=== PATIENT | female | born 1965 | race African-American/Black ===

== ENCOUNTER → 2016-07-01 | Outpatient (CLI) | payer BC ==
--- NOTE | 2016-07-02 09:50 | MM ---
Reason for exam: screening (asymptomatic). Last mammogram was performed 5 years and 4 months ago. History: Family history of premenopausal breast cancer in aunt. Physical Findings: A clinical breast exam by your physician is recommended on an annual basis and results should be correlated with mammographic findings. MG Screening Mammo w CAD Bilateral CC and MLO view(s) were taken. Prior study comparison: March 04, 2011, bilateral digital screening mammo w/CAD. May 12, 2006, bilateral screening mammogram w/CAD. The breast tissue is heterogeneously dense. This may lower the sensitivity of mammography. No significant changes when compared with prior studies. ASSESSMENT: Benign, BI-RAD 2 RECOMMENDATION: Routine screening mammogram of both breasts in 1 year.
== END | disposition home or self-care (01) ==
LOC: RADMAMWWP 16:32
PROVIDERS: ATTEND Family Medicine
DX: Z12.31 Encounter for screening mammogram for malignant neoplasm of breast (principal)

== ENCOUNTER 2021-03-04 00:23 | Emergency (ER) | payer BC, OTHER ==
[2021-03-04 00:32] VITALS: RESP 18
[2021-03-04] MEDS ORDERED: ACETAMINOPHEN TAB 325 MG TAB PO STA (01:07)
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
--- NOTE | 2021-03-04 02:19 | XR ---
EXAMINATION TYPE: XR humerus LT DATE OF EXAM: 03/04/2021 COMPARISON: NONE HISTORY: Pain TECHNIQUE: 3 views FINDINGS: Shoulder joint and elbow joint appear intact. I see no fracture nor dislocation. There is n o sign of elbow joint effusion. IMPRESSION: Negative left humerus exam.
[2021-03-04 03:11] VITALS: BP 139/83; PULSE 68; TEMP 98.3
== END 2021-03-04 02:50 | disposition home or self-care (01) ==
LOC: EC 00:23
DX: S70.02XA Contusion of left hip, initial encounter (principal); S40.022A Contusion of left upper arm, initial encounter; K21.9 Gastro-esophageal reflux disease without esophagitis; F17.200 Nicotine dependence, unspecified, uncomplicated; Z88.0 Allergy status to penicillin; Z98.51 Tubal ligation status; V43.52XA Car driver injured in collision with other type car in traffic accident, initial encounter; Y92.410 Unspecified street and highway as the place of occurrence of the external cause
CPT/HCPCS: 73502; 99284

== ENCOUNTER → 2021-04-22 | Outpatient (CLI) | payer BC ==
--- NOTE | 2021-04-22 12:28 | XR ---
Limited cervical spine HISTORY: Neck pain 5 views of cervical spine Cervical vertebral bodies show preserved height, alignment, and bone mineralization. Disc spaces and prevertebral soft tissues are normal. There is a thoracic scoliosis suspected. Lung apices are remark able for questionable apical nodular density in the left superimpose of the anterior first rib latera lly. Odontoid views are limited. IMPRESSION: No significant abnormality within the cervical spine. Cannot exclude left upper lobe lung nodule, consider chest x-ray with associated apical lordotic view versus chest CT for better evaluat ion. There is likely an underlying scoliosis.
== END | disposition home or self-care (01) ==
LOC: RADXRMAIN 09:19
PROVIDERS: ATTEND Family Medicine
DX: M54.2 Cervicalgia (principal)
CPT/HCPCS: 72040

== ENCOUNTER → 2021-05-28 | Outpatient (CLI) | payer BC, OTHER ==
--- NOTE | 2021-05-28 08:20 | MR ---
MRI CERVICAL SPINE: CLINICAL HISTORY: Cervicalgia. TECHNIQUE: Multiplanar, multisequence imaging of the cervical spine is performed without IV contrast. COMPARISON: Cervical spine x-ray April 22, 2021. FINDINGS: Sagittal images of the cervical spine show the craniocervical junction to appear within nor mal limits. The cervical and upper thoracic spinal cord is normal in course, caliber, and signal. V ertebral alignment is anatomic. The vertebral body and intravertebral disk heights are normal. The bone marrow signal intensity is within normal limits. Axial images show there is no significant focal disk disease, spinal canal stenosis, neural foraminal narrowing, or spinal cord compromise at any cervical level. Note is made of a oval 8 x 10 x 6 mm T1 hypointense and T2 hyperintense structure in the proximal esophagus at C7-T1 level sagittal image 8 a nd axial image 4. Follow-up for this is advised. IMPRESSION: No suspicious disc herniation or degenerative change. Attention to proximal esophagus, po ssible mass or polyp, further investigation with direct visualization and/or barium esophagram advise justin
== END | disposition home or self-care (01) ==
LOC: RADMRIMAIN 07:38
PROVIDERS: ATTEND Family Medicine
DX: M54.2 Cervicalgia (principal)
CPT/HCPCS: 72141

== ENCOUNTER 2021-06-12 07:59 | Day surgery (SDC) | payer BC ==
[2021-06-10 10:32] VITALS: BMI 22.6
[2021-06-12] MEDS ORDERED: LACTATED RINGERS 1,000 ML IV SCH (08:21)
[2021-06-12 08:26] VITALS: TEMP 97.3
[2021-06-12] MEDS ORDERED: LACTATED RINGERS 1,000 ML IV ONE (08:26)
[2021-06-12] MEDS ORDERED: PROPOFOL 10 MG/ML 20 ML VIAL IV ONE (09:30)
[2021-06-12] MEDS ORDERED: LIDOCAINE 1% INJ 10MG/ML (20 ML MDV) ONE (09:30)
--- NOTE | 2021-06-12 09:40 | P.PCN ---
Date of Procedure: 06/12/21 Procedure(s) Performed: BRIEF HISTORY: Patient is a 55-year-old, pleasant, -[place] female scheduled for an upper endoscopy as a part of evaluation of intermittent dysphagia to solids of GERD. She recently had an MRI of the cervical spine per dictated and was noted to have a lesion in the proximal esophagus and hence scheduled for an upper endoscopy to evaluate further. PROCEDURE PERFORMED: Esophagogastroduodenoscopy with biopsy. PREOPERATIVE DIAGNOSIS: GERD/dysphagia/abnormal MRI of the cervical spine showed lesions in the proximal esophagus. IV sedation per anesthesia. PROCEDURE: After informed consent was obtained, the patient was brought into the endoscopy unit. IV sedation was administered by Anesthesia under continuous monitoring. Initially the Olympus GIF-140 video endoscope was inserted into the mouth. Esophagus intubated without any difficulty. It was gradually advanced into the stomach and duodenum and carefully examined. The bulb and the second part of the duodenum appeared normal. The scope at this time was withdrawn to the stomach, adequately insufflated with air, and upon careful examination, mucosa of the antrum, had patchy areas of erythema noted in the prepyloric area which was biopsied. The body, cardia and the fundus appeared normal. The scope was then withdrawn into the esophagus. The GE junction was located at 40 cm from the incisors. There were no erosions or ulcerations seen . The esophagus appeared slightly dilated with small amount of retained liquid noted. The esophagus was carefully examined and there were no and the patient tolerated the procedure well. IMPRESSION: 1. Dilated esophagus with small amount of retained liquids but no evidence of esophageal stricture or esophageal lesions identified. 2. Mild antral gastritis. RECOMMENDATIONS: The findings of this examination were discussed with the patient as well as a family. She was advised to follow with the biopsy results. She will continue with her current medications and follow up in office as needed
[2021-06-12 09:55] VITALS: RESP 16
[2021-06-12 10:17] VITALS: BP 106/70; PULSE 71
== END 2021-06-12 10:30 | disposition home or self-care (01) ==
LOC: ORWHC2ENDO 07:59
PROVIDERS: ATTEND Internal Medicine Gastroenterology
DX: K22.89 Other specified disease of esophagus (principal); K21.9 Gastro-esophageal reflux disease without esophagitis; K29.50 Unspecified chronic gastritis without bleeding; F17.210 Nicotine dependence, cigarettes, uncomplicated; K31.9 Disease of stomach and duodenum, unspecified; Z79.899 Other long term (current) drug therapy; Z88.0 Allergy status to penicillin; Z88.2 Allergy status to sulfonamides
CPT/HCPCS: 88305; 43239; J2001; J2704

== ENCOUNTER → 2021-06-22 | Outpatient (CLI) | payer BC, OTHER ==
[2021-06-22 08:36] VITALS: BP 138/87; PULSE 84; RESP 18; TEMP 98.3
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
== END ==
LOC: PNWHC3 08:04
PROVIDERS: ATTEND Specialist
DX: M47.814 Spondylosis without myelopathy or radiculopathy, thoracic region (principal); M79.18 Myalgia, other site; Z87.891 Personal history of nicotine dependence; Z88.0 Allergy status to penicillin; Z88.8 Allergy status to other drugs, medicaments and biological substances
CPT/HCPCS: 99211

== ENCOUNTER → 2021-06-23 | Outpatient (CLI) | payer BC ==
--- NOTE | 2021-06-23 13:46 | BD ---
EXAMINATION TYPE: Axial Bone Density DATE OF EXAM: 06/23/2021 COMPARISON: 03.04.2011 CLINICAL HISTORY: 55 YR OLD FEMALE....ICD-10 CODE: N95.1 POST MENOPAUSAL Height: 65.5 Weight: 138 FRAX RISK QUESTIONS: Current Tobacco Use: YES RISK FACTORS HISTORY OF: Postmenopausal woman: YES, AT AGE 52 YRS OLD Hyperparathyroidism: NO Adrenal Insufficiency: NO MEDICATIONS: Additional Medications: FLEXERIL, WELLBUTRIN, MOTRIN, Additional History: SMOKES, EXAM MEASUREMENTS: Bone mineral densitometry was performed using the [employer] System. Bone mineral density as measured about the Lumbar spine is: ----- L1-L4(G/cm2): 1.010 T Score Values are as follows: ----- L1 -1.7 ----- L2: -0.7 ----- L3: -1.2 ----- L4: -2.0 ----- L1-L4: -1.4 Bone mineral density has: Decreased -17.8% since study of: 03.04.2011 Bone mineral density about the R hip (g/cm2): 0.870 Bone mineral density about the L hip (g/cm2): 0.932 T Score values are as follows: -----R Neck: -1.1 -----L Neck: -0.9 -----R Total: -1.1 -----L Total: -0.6 Bone mineral density has: Decreased -12.4% since study of: 03.04.2011 FRAX%s: THERE IS A 2.7% CHANCE FOR A MAJOR OSTEOPOROTIC FX AND A 0.3% FOR HIP.....PROBABILITY FOR FX IN 10 YRS TIME IMPRESSION: Osteopenia lumbar spine and right hip. NOTE: T-SCORE=SD OF THE YOUNG ADULT MEAN.
--- NOTE | 2021-06-25 14:29 | MM ---
Reason for exam: screening (asymptomatic). Last mammogram was performed 5 years ago. History: Family history of premenopausal breast cancer in aunt. Physical Findings: A clinical breast exam by your physician is recommended on an annual basis and results should be correlated with mammographic findings. MG Screening Mammo w CAD Bilateral CC and MLO view(s) were taken. Prior study comparison: July 01, 2016, bilateral MG screening mammo w CAD. March 04, 2011, bilateral digital screening mammo w/CAD. The breast tissue is heterogeneously dense. This may lower the sensitivity of mammography. There is no discrete abnormality. No significant changes when compared with prior studies. ASSESSMENT: Negative, BI-RAD 1 RECOMMENDATION: Routine screening mammogram of both breasts in 1 year.
== END | disposition home or self-care (01) ==
LOC: RADMAMWWP 11:47
PROVIDERS: ATTEND Family Medicine
DX: Z12.31 Encounter for screening mammogram for malignant neoplasm of breast (principal); M85.89 Other specified disorders of bone density and structure, multiple sites; Z78.0 Asymptomatic menopausal state; Z80.3 Family history of malignant neoplasm of breast
CPT/HCPCS: 77067; 77080

== ENCOUNTER → 2021-07-08 | Outpatient (CLI) | payer OTHER ==
--- NOTE | 2021-07-08 10:13 | MR ---
EXAMINATION TYPE: MR thoracic spine wo con DATE OF EXAM: 07/08/2021 COMPARISON: NONE HISTORY: 55-year-old female M47.814, thoracic spondylosis, Mid-back pain. TECHNIQUE: Multiplanar, multisequence images of the thoracic spine were obtained without IV contrast. FINDINGS: A minimal levoconvex curvature centered along the upper risks explained. No suspicious bone marrow placement. Vertebral body heights are preserved and alignment is maintained. Variable mild intervertebral disc desiccation upper and mid thoracic spine. No focal disc herniation or spinal canal stenosis is seen. Mild facet arthropathy lower thoracic spine towards the right. No significant neuroforaminal stenosis identified. Normal course and caliber, and signal intensity of the thoracic spinal cord. The thoracic esophagus appears very patulous. IMPRESSION: 1. No vertebral compression collapse or malalignment. 2. Mild degenerative disc desiccation upper and mid thoracic spine. Mild facet arthropathy towards th e right in the lower thoracic spine. 3. No focal disc herniation or significant spinal canal stenosis. No significant neuroforaminal steno sis seen. 4. Very patulous thoracic esophagus. Query prior surgery or achalasia. Recommend GI referral.
== END | disposition home or self-care (01) ==
LOC: RADMRIMAIN 07:43
PROVIDERS: ATTEND Specialist
DX: M47.814 Spondylosis without myelopathy or radiculopathy, thoracic region (principal); M51.34 Other intervertebral disc degeneration, thoracic region
CPT/HCPCS: 72146

== ENCOUNTER 2021-07-23 06:23 | Day surgery (SDC) | payer BC, OTHER ==
[2021-07-21 10:35] VITALS: BMI 21.9
[~2021-07-23 06:23] MED LIST: LACTATED RINGERS 1,000 ML IV SCH
[2021-07-23 06:57] VITALS: RESP 16; TEMP 97.5
[2021-07-23] MEDS ORDERED: methylPREDNISolone ACETATE 40 MG/ML 1 ML VIAL ONE (07:19)
[2021-07-23] MEDS ORDERED: ROPIVACAINE 5MG/ML 20ML VIAL ONE (07:19)
[2021-07-23] MEDS ORDERED: MIDAZOLAM 2 MG/2 ML VIAL ONE (07:19)
[2021-07-23] MEDS ORDERED: fentaNYL (PF) 50 MCG/ML 2 ML AMP ONE (07:19)
--- NOTE | 2021-07-23 07:35 | P.PCN ---
Date of Procedure: 07/23/21 Procedure(s) Performed: Procedure= trigger point injection Lower cervical and upper thoracic area total of 9 trigger point injected, 5 on the right side cervical and thoracic paravertebral muscles and 4 on the left side lower cervical and upper thoracic paravertebral muscles Preoperative diagnosis= 1- myofascial pain syndrome cervical and thoracic area 2-Thoracic degenerative disc disease 3-Thoracic spondylosis with facet arthropathy Postoperative diagnosis=Same as preop Diagnosis . Complication = none Condition= stable Anesthesia= moderate sedation with Versed 2 mg and fentanyl 50 g . Indication for the procedure= patient complaining of mid back pain , examination was positive for multiple trigger point identified in the thoracic area. Description of the procedure= procedure risk and benefits discussed with the patient, including but not limited, risk of infection and bleeding, and ALLERGIC reaction to the medication and not complete pain relief and patient agreed with the preceding patient taken to the operating room, placed in prone position or standard monitors applied to the patient then after back prepped with chlorhexidine 3 times , total of 5 trigger point identified in the right side lower cervical and upper thoracic para spinal muscles, and 5 on the left side lower cervical and upper thoracic paraspinal muscles ,each one of them ,injected with 2 mL of the mixture of ropivacaine 0.5% 18 ML and 40 mg of Depo-Medrol mixed together and 2 ML of the mixture injected at each trigger point after negative aspiration, injection done using 25-gauge needle, and there was no paresthesia during the injection, patient will follow up in the pain clinic in a few weeks, and if she continued to have pain, then will consider targeting the medial branch upper thoracic area, if she has no benefit from the injection done today
[2021-07-23] MEDS ORDERED: IV FLUID CONTINUATION 1,000 ML IV ONE (07:39)
[2021-07-23 08:08] VITALS: BP 132/89; PULSE 75
== END 2021-07-23 08:27 | disposition home or self-care (01) ==
LOC: ORPAIN 06:23
PROVIDERS: ATTEND Specialist
DX: M79.18 Myalgia, other site (principal)
CPT/HCPCS: 20553; J2250; J1030; J3010; J2795

== ENCOUNTER 2021-08-20 11:50 | Day surgery (SDC) | payer OTHER ==
[2021-08-20] MEDS ORDERED: LIDOCAINE 1% (10MG/ML) FOR IV START INTRADERMA PRN (12:06)
[2021-08-20] MEDS ORDERED: LACTATED RINGERS 1,000 ML IV SCH (12:06)
[2021-08-20 12:24] VITALS: TEMP 97.1
[2021-08-20] MEDS ORDERED: methylPREDNISolone ACETATE 40 MG/ML 1 ML VIAL ONE (13:07)
[2021-08-20] MEDS ORDERED: fentaNYL (PF) 50 MCG/ML 2 ML AMP ONE (13:07)
[2021-08-20] MEDS ORDERED: ROPIVACAINE 5MG/ML 20ML VIAL ONE (13:07)
[2021-08-20] MEDS ORDERED: MIDAZOLAM 2 MG/2 ML VIAL ONE (13:07)
--- NOTE | 2021-08-20 13:26 | P.PCN ---
Date of Procedure: 08/20/21 Procedure(s) Performed: Procedure= trigger point injection Lower cervical and upper thoracic area total of 7 trigger point injected, 3 on the right side cervical and thoracic paravertebral muscles and 4 on the left side lower cervical and upper thoracic paravertebral muscles Preoperative diagnosis= 1- myofascial pain syndrome cervical and thoracic area 2-Thoracic degenerative disc disease 3-Thoracic spondylosis with facet arthropathy Postoperative diagnosis=Same as preop Diagnosis . Complication = none Condition= stable Anesthesia= moderate sedation with Versed 2 mg and fentanyl 50 g . Indication for the procedure= patient complaining of mid back pain , examination was positive for multiple trigger point identified in the thoracic area. Description of the procedure= procedure risk and benefits discussed with the patient, including but not limited, risk of infection and bleeding, and ALLERGIC reaction to the medication and not complete pain relief and patient agreed with the preceding patient taken to the operating room, placed in prone position or standard monitors applied to the patient then after back prepped with chlorhexidine 3 times , total of 3 trigger point identified in the right side lower cervical and upper thoracic para spinal muscles, and 4 on the left side lower cervical and upper thoracic paraspinal muscles ,each one of them ,injected with 2 mL of the mixture of ropivacaine 0.5% 14 ML and 40 mg of Depo-Medrol mixed together and 2 ML of the mixture injected at each trigger point after negative aspiration, injection done using 25-gauge needle, and there was no paresthesia during the injection, patient will follow up in the pain clinic in a few weeks, and if she continued to have pain, then will consider targeting the medial branch upper thoracic area, if she has no benefit from the injection done today
[2021-08-20] MEDS ORDERED: IV FLUID CONTINUATION 1,000 ML IV ONE (13:30)
[2021-08-20 13:36] VITALS: PULSE 76
[2021-08-20 14:09] VITALS: BP 122/85; RESP 20
== END 2021-08-20 14:34 | disposition home or self-care (01) ==
LOC: ORPAIN 11:50
PROVIDERS: ATTEND Specialist
DX: M79.18 Myalgia, other site (principal); M51.34 Other intervertebral disc degeneration, thoracic region; M47.814 Spondylosis without myelopathy or radiculopathy, thoracic region
CPT/HCPCS: 20553; J2250; J1030; J3010; J2795

== ENCOUNTER → 2021-09-07 | Outpatient (CLI) | payer OTHER ==
[2021-09-07 08:56] VITALS: BP 141/87; PULSE 86; RESP 18; TEMP 98.2
--- NOTE | 2021-09-07 08:58 | P.PN ---
Subjective Progress Note Date: 09/07/21 Principal diagnosis: A 55 yr old female with a history of severe and chronic neck pain secondary to cervical degenerative disc diseases and spondylosis with facet arthropathy presents today for evaluation s/p TPI of the R C6-T1 and L C6-T2. Patient states she experienced 90% pain relief status post procedure. Pain level is currently at 0 out of 10 in intensity but escalates as high as 1 out of 10 in intensity, sharp, radiating to the upper aspect of the shoulders bilaterally with forward flexion or extension of the cervical spine. Pain is alleviated with medications, injections, heat, repositioning, physical therapy which she completed 2 weeks ago, massage, repositioning and rest. Interventional pain procedures completed include TPI of R C6-T1 & L C6-T2. Patient denies any side effects of the medication(s), denies excessive drowsiness or sleepiness, denies suicidal ideation and reports that the current pain medication is helping to control the pain and improve activities of daily living. Patient denies any motor or sensory deficits. Patient denies any fever or night sweats, denies any change in the bowel movements or urination. Physical Examination: -Constitutional: Cooperative. Not in acute distress . -HEENT: Neck is supple. No lymphadenopathy. No thyromegaly. Normal thyroid size. Eyes: No ptosis , no icterus, no photophobia. ENT: No auditory deficits. Normal oropharynx. No Thrush. - Respiratory: Chest clear to auscultations bilaterally. No wheezing. No rhonchi. - Cardiovascular: Regular rate and rhythm. S1 / S2 , no S3 , no S4. - Gastrointestinal: Abdomen soft no tenderness. Bowel sounds positive in all four quadrants. No organomegaly. - Genitourinary: Deferred. - Neurologic: Cranial nerve II to XII intact. No focal neurological deficits. - Psychatric: Alert & oriented x 3. Matching mood & appropriate affect. Judgment and insight intact. - Lymphatic: No Lymphadenopathy. - Musculoskeletal: Cervical spine: Muscle bulk/ tone/ strength in the bilateral upper extremities normal. Facet loading test cervical area positive. Vertebral body tenderness to palpation over C6-C7 Paraspinal muscle tenderness to deep palpation over bilateral C6-T1 Lumbar spine: Motor bulk/ tone/ strength lower extremities , thigh and legs : 5/5 Deep tendon reflexes : Normal Knee Jerk. Normal Ankle Jerk . Vertebral body tenderness to palpation over Lumbar Facet Loading Test positive Straight Leg Raise: positive at 30 degrees right side/ left side Gaenslen's Test positive Sacral spine : Severe tenderness over the Sacroiliac joint: right side / left side Range of motion: Flexion of the lumbar spine <60 degrees Range of motion: Extension of the lumbar spine <20 degrees Gaenslen's Test positive Alexandr test: positive right side / left side Assessment and plan: Chronic neck pain secondary to cervical degenerative disc disease , spondylosis with facet arthropathy without myelopathy Patient may return to our office on an as needed basis. All patient questions answered MAPS reviewed and it was appropriate. I have spent 31 minutes on patient care today. Dr Barcenas was available by phone for the evaluation of this patient. The time was used to review the medical records including relevant urine studies and Prescription history (MAPs), review of the available imaging, evaluation and examination of the patient, coordination of care with the medical staff and if applicable referring physicians, as well as creation of the medical record PQRS Measure Charge Sheet Mode of Arrival: Ambulatory PQRS Narrative: Smoking Status Current every day smoker Blood Pressure 141/87 Scale Used Numeric (1 - 10) Hx Alcohol Use (MH) No Home Medications: Ambulatory Orders Cannabidiol (Cbd) [Epidiolex] 1 dose TOPICAL DAILY PRN 06/17/21 Cyclobenzaprine [Flexeril] 10 mg PO HS PRN 30 Days #30 tab 08/17/21 Ibuprofen [Motrin] 800 mg PO Q8HR PRN 30 Days #90 tab 08/17/21
== END ==
LOC: PNWHC3 08:27
PROVIDERS: ATTEND Physician Assistant Medical
DX: M47.812 Spondylosis without myelopathy or radiculopathy, cervical region (principal); M50.30 Other cervical disc degeneration, unspecified cervical region; G89.29 Other chronic pain; F17.200 Nicotine dependence, unspecified, uncomplicated; Z88.0 Allergy status to penicillin; Z88.8 Allergy status to other drugs, medicaments and biological substances
CPT/HCPCS: 99211

== ENCOUNTER 2022-09-13 22:52 | Emergency (ER) | payer BC ==
[2022-09-13 23:05] VITALS: BP 149/95; PULSE 80; RESP 18; TEMP 98.3
--- NOTE | 2022-09-13 23:38 | XR ---
EXAMINATION TYPE: XR knee complete LT DATE OF EXAM: 09/13/2022 COMPARISON: NONE HISTORY: Knee pain TECHNIQUE: 3 view FINDINGS: There is no evidence of fracture nor dislocation. Joint spaces are normal. No sign of any j oint effusion. IMPRESSION: Negative left knee exam.
--- NOTE | 2022-09-13 23:50 | ED ---
Lower Extremity Injury HPI - General Chief Complaint: Extremity Injury, Lower Stated Complaint: L knee pain Time Seen by Provider: 09/13/22 23:06 Source: patient, RN notes reviewed Mode of arrival: ambulatory Limitations: no limitations - History of Present Illness Initial Comments: 56-year-old female presents emergency Department with chief complaint of left knee pain. Patient states she was getting off the toilet when her foot slipped on the rug causing her to twist. Patient states she twisted her left knee states she had increase in swelling, difficulty and bleeding states she can barely put any weight on her left leg. Patient's had right knee problems in the past no prior left knee surgery. Patient states it feels very loose, feels like he wants to give out. - Related Data Home Medications Medication Instructions Recorded Confirmed Cannabidiol (Cbd) [Epidiolex] 1 dose TOPICAL DAILY PRN 06/17/21 08/20/21 Previous Rx's Medication Instructions Recorded Cyclobenzaprine [Flexeril] 10 mg PO HS PRN 30 Days #30 tab 08/17/21 Ibuprofen [Motrin] 800 mg PO Q8HR PRN 30 Days #90 tab 08/17/21 Allergies Allergy/AdvReac Type Severity Reaction Status Date / Time Penicillins Allergy Rash/Hives Verified 08/20/21 12:07 prochlorperazine edisylate Allergy CLOSED Verified 08/20/21 12:07 [From Compazine] AIRWAY prochlorperazine maleate Allergy CLOSED Verified 08/20/21 12:07 [From Compazine] AIRWAY Review of Systems ROS Statement: Those systems with pertinent positive or pertinent negative responses have been documented in the HPI. ROS Other: All systems not noted in ROS Statement are negative. Past Medical History Past Medical History: GERD/Reflux History of Any Multi-Drug Resistant Organisms: None Reported Past Surgical History: Orthopedic Surgery, Tubal Ligation Additional Past Surgical History / Comment(s): ARTHROSCOPY KNEE Past Anesthesia/Blood Transfusion Reactions: No Reported Reaction Past Psychological History: No Psychological Hx Reported Smoking Status: Current every day smoker General Exam Limitations: no limitations General appearance: alert, in no apparent distress Head exam: Present: atraumatic, normocephalic, normal inspection Respiratory exam: Present: normal lung sounds bilaterally. Absent: respiratory distress, wheezes, rales, rhonchi, stridor Cardiovascular Exam: Present: regular rate, normal rhythm, normal heart sounds. Absent: systolic murmur, diastolic murmur, rubs, gallop, clicks Extremities exam: Present: other (Left knee there is moderate fluid noted, pain with range of motion neurovascular intact joint above and below left knee within normal limits there is some laxity noted of the left knee) Course Vital Signs 09/13/22 23:01 Temperature 98.3 F Pulse Rate 80 Respiratory 18 Rate Blood Pressure 149/95 O2 Sat by Pulse 98 Oximetry Medical Decision Making - Medical Decision Making Was pt. sent in by a medical professional or institution (, ROBERT, BEATER MACHINE OPERATOR, urgent care, hospital, or alf...) When possible be specific @ -No Did you speak to anyone other than the patient for history (EMS, parent, family, police, friend...)? What history was obtained from this source @ -No Did you review nursing and triage notes (agree or disagree)? Why? @ -I reviewed and agree with nursing and triage notes Were old charts reviewed (outside hosp., previous admission, EMS record, old EKG, old radiological studies, urgent care reports/EKG's, alf records)? Report findings @ -No old charts were reviewed Differential Diagnosis (chest pain, altered mental status, abdominal pain women, abdominal pain men, vaginal bleeding, weakness, fever, dyspnea, syncope, headache, dizziness, GI bleed, back pain, seizure, CVA, palpatations, mental health, musculoskeletal)? @ -Left knee sprain, left knee strain, left knee dislocation, femur fracture, this list is not all inclusive EKG interpreted by me (3pts min.). @ -None X-rays interpreted by me (1pt min.). @ -X-ray is unremarkable a left knee CT interpreted by me (1pt min.). @ -None done U/S interpreted by me (1pt. min.). @ -None done What testing was considered but not performed or refused? (CT, X-rays, U/S, labs)? Why? @ -Consider MRI though this will be completed outpatient as unable to complete in the emergency Department What meds were considered but not given or refused? Why? @ -None Did you discuss the management of the patient with other professionals (professionals i.e. , ROBERT, BEATER MACHINE OPERATOR, lab, RT, psych nurse, health and social care teacher, counseling director, teacher, policy officer, disability case manager)? Give summary @ -No Was smoking cessation discussed for >3mins.? @ -No Was critical care preformed (if so, how long)? @ -No Were there social determinants of health that impacted care today? How? (Homelessness, low income, unemployed, alcoholism, drug addiction, transportation, low edu. Level, literacy, decrease access to med. care, group home, rehab)? @ -No Was there de-escalation of care discussed even if they declined (Discuss DNR or withdrawal of care, Hospice)? DNR status @ -No What co-morbidities impacted this encounter? (DM, HTN, Smoking, COPD, CAD, Cancer, CVA, ARF, Chemo, Hep., AIDS, mental health diagnosis, sleep apnea, morbid obesity)? @ -None Was patient admitted / discharged? Hospital course, mention meds given and route, prescriptions, significant lab abnormalities, going to OR and other pertinent info. @ -Discharge patient has a left knee sprain concerning for ligamentous injury, tear will follow-up with orthopedics for MRI patient was placed in knee immobilizer. Undiagnosed new problem with uncertain prognosis? @ -No Drug Therapy requiring intensive monitoring for toxicity (Heparin, Nitro, Insulin, Cardizem)? @ -No Were any procedures done? @ -No Diagnosis/symptom? @ -Left knee strain Acute, or Chronic, or Acute on Chronic? @ -Acute Uncomplicated (without systemic symptoms) or Complicated (systemic symptoms)? @ -Uncomplicated Side effects of treatment? @ -No Exacerbation, Progression, or Severe Exacerbation? @ -No Poses a threat to life or bodily function? How? (Chest pain, [place], [place], pneumonia, PE, COPD, DKA, ARF, appy, cholecystitis, CVA, Diverticulitis, Homicidal, Suicidal, threat to staff... and all critical care pts) @ -No Disposition Clinical Impression: Derangement of left knee Disposition: HOME SELF-CARE Condition: Stable Instructions (If sedation given, give patient instructions): Knee Pain (ED) Additional Instructions: Please return to the Emergency Department if symptoms worsen or any other concerns. Is patient prescribed a controlled substance at d/c from ED?: No Referrals: Kem Schwartz MD [Primary Care Provider] - 1-2 days Gregorio Nation MD [STAFF PHYSICIAN] - 1-2 days Time of Disposition: 23:50
== END 2022-09-14 00:06 | disposition home or self-care (01) ==
LOC: EC 22:52
DX: M23.92 Unspecified internal derangement of left knee (principal); F17.200 Nicotine dependence, unspecified, uncomplicated; Z88.0 Allergy status to penicillin; Z88.8 Allergy status to other drugs, medicaments and biological substances; X50.1XXA Overexertion from prolonged static or awkward postures, initial encounter
CPT/HCPCS: 99283

== ENCOUNTER → 2022-10-21 | Outpatient (CLI) | payer BC ==
--- NOTE | 2022-10-22 07:33 | MM ---
Reason for Exam: Screening (asymptomatic). Last mammogram was performed 1 year(s) and 4 month(s) ago. Patient History: Menarche at age 10. First Full-Term at age 23. Postmenopausal. Maternal aunt had breast cancer. Risk Values: America 5 year model risk: 1.5%. NCI Lifetime model risk: 8.5%. Prior Study Comparison: 03/04/2011 Bilateral Screening Mammogram, [facility]. 07/01/2016 Bilateral Screening Mammogram, [facility]. 06/23/2021 Bilateral Screening Mammogram, [facility]. Tissue Density: There are scattered fibroglandular densities. Findings: Analyzed By CAD. There is no suspicious group of microcalcifications or new suspicious mass in either breast. Overall Assessment: Negative, BI-RAD 1 Management: Screening Mammogram of both breasts in 1 year. . Patient should continue monthly self-breast exams. A clinical breast exam by your physician is recommended on an annual basis. This exam should not preclude additional follow-up of suspicious palpable abnormalities. Note on America scores and lifetime risk: 1. A America score greater than 3% is considered moderate risk. If this is the case, consider specialist referral to assess eligibility for a risk reducing agent. 2. If overall lifetime risk for the development of breast cancer is 20% or higher, the patient may qualify for future screening with alternating mammogram and breast MRI. Electronically signed and approved by: Fahad Powell M.D.
== END | disposition home or self-care (01) ==
LOC: RADMAMWWP 11:07
PROVIDERS: ATTEND Family Medicine
DX: Z12.31 Encounter for screening mammogram for malignant neoplasm of breast (principal); Z78.0 Asymptomatic menopausal state; Z80.3 Family history of malignant neoplasm of breast
CPT/HCPCS: 77067

== ENCOUNTER → 2023-10-31 | Outpatient (CLI) | payer BC ==
--- NOTE | 2023-10-31 09:12 | XR ---
EXAM TYPE: LUMBAR SPINE X RAY SERIES COMPARISON: NONE HISTORY: None TECHNIQUE: 4 views are submitted. FINDINGS: Alignment is anatomic. The pedicles are intact. The transverse processes are intact. There is high grade 1 anterolisthesis L5-S1 with moderate degenerative disc disease and facet arthropathy. IMPRESSION: 1. Moderate degenerative disc disease L5-S1 with minimal anterolisthesis. Facet arthropathy. Suspect foraminal encroachment. Consider follow-up MRI.
--- NOTE | 2023-10-31 09:13 | XR ---
EXAMINATION TYPE: XR sacrum coccyx DATE OF EXAM: 10/31/2023 COMPARISON: NONE HISTORY: Pain Three views are submitted. Sacrum is intact. Mild SI joint arthropathy. Facet arthropathy and modera te degenerative disc disease L5-S1. There is a chronic-appearing deformity at the sacrococcygeal junc tion.. Coccyx appears to be intact. Visualized pelvic structures intact. Mild hypertrophic bilater al hip arthropathy. Vascular phleboliths noted. IMPRESSION: 1. Chronic appearing deformity of the sacrococcygeal Junction correlate for remote trauma. 2. Moderate degenerative disc disease L5-S1 with facet arthropathy. 3. Mild hypertrophic arthropathy SI joint and bilateral hip..
--- NOTE | 2023-10-31 11:56 | BD ---
EXAMINATION TYPE: Axial Bone Density DATE OF EXAM: 10/31/2023 CLINICAL HISTORY: 58 years old Female. ICD-10 CODE: N95.1 MENOPAUSAL AND FEMALE CLIMACTERIC STA Height: 66 Weight: 172.5 FRAX RISK QUESTIONS: Alcohol (3 or more units per day): yes Family History (Parent hip fracture): no Glucocorticoids (More than 3mos): no (Ex: prednisone, prednisolone, methylprednisolone, dexamethasone, and hydrocortisone). History of Fracture in Adulthood: no Secondary Osteoporosis: 1. Type 1 Diabetes: no 2. Hyperthyroidism: no 3. Menopause before 45: no 4. Malnutrition: no 5. Chronic liver disease: no Rheumatoid Arthritis: no Current Tobacco Use: no RISK FACTORS HISTORY OF: Surgery to Spine/Hip(right/left)/Wrist (right/left): no When: EXAM MEASUREMENTS: Bone mineral densitometry was performed using the [employer] System. Bone mineral density as measured about the Lumbar spine is: ----- L1-L4(G/cm2): 1.068 T Score Values are as follows: ----- L1: -0.9 ----- L2: -0.3 ----- L3: -1.3 ----- L4: -1.2 ----- L1-L4: -0.9 Z Score Values are as follows: ----- L1: -0.8 ----- L2: -0.3 ----- L3: -1.3 ----- L4: -1.2 ----- L1-L4: -0.9 Bone mineral density has: increased 5.7 % since study of: 06.23.2021 Bone mineral density about the R hip (g/cm2): [id number] Bone mineral density about the L hip (g/cm2): 0.895 T Score values are as follows: -----R Neck: -1.5 -----L Neck: -1.2 -----R Total: -1.3 -----L Total: -0.9 Z Score values are as follows: -----R Neck: -1.5 -----L Neck: -1.2 -----R Total: -1.7 -----L Total: -1.3 Bone mineral density has: decreased -3.9 % since study of: 06.23.2020 FRAX%s: The graph provided illustrates a 4.3% chance for a major osteoporotic fx and a 0.5% chance fo r the hips probability for fx in 10 years time. IMPRESSION: Osteopenia (T Score between -2.5 and -1). There is slightly increased risk of fracture and the patient may be considered for treatment. Re-Screen 2-5 years. NOTE: T-SCORE=SD OF THE YOUNG ADULT MEAN.
--- NOTE | 2023-11-01 08:24 | MM ---
Reason for Exam: Screening (asymptomatic). Last mammogram was performed 1 year(s) and 1 month(s) ago. Patient History: Menarche at age 10. First Full-Term at age 23. Postmenopausal. Maternal aunt had breast cancer. Risk Values: America 5 year model risk: 1.4%. NCI Lifetime model risk: 6.9%. Prior Study Comparison: 07/01/2016 Bilateral Screening Mammogram, [facility]. 06/23/2021 Bilateral Screening Mammogram, [facility]. 10/21/2022 Bilateral MG screening mammo w CAD, [facility]. Tissue Density: There are scattered areas of fibroglandular density. Findings: Analyzed By CAD. There is no suspicious group of microcalcifications or new suspicious mass in either breast. Benign appearing calcifications. Overall Assessment: Benign, BI-RAD 2 Management: Screening Mammogram of both breasts in 1 year. . Patient should continue monthly self-breast exams. A clinical breast exam by your physician is recommended on an annual basis. This exam should not preclude additional follow-up of suspicious palpable abnormalities. Note on America scores and lifetime risk: 1. A America score greater than 3% is considered moderate risk. If this is the case, consider specialist referral to assess eligibility for a risk reducing agent. 2. If overall lifetime risk for the development of breast cancer is 20% or higher, the patient may qualify for future screening with alternating mammogram and breast MRI. Electronically signed and approved by: Galileo Holloway M.D. Radiologis
== END | disposition home or self-care (01) ==
LOC: RADMAMWWP 08:15
PROVIDERS: ATTEND Family Medicine
DX: Z12.31 Encounter for screening mammogram for malignant neoplasm of breast (principal); M47.27 Other spondylosis with radiculopathy, lumbosacral region; M51.17 Intervertebral disc disorders with radiculopathy, lumbosacral region; M53.3 Sacrococcygeal disorders, not elsewhere classified; N95.1 Menopausal and female climacteric states; M43.17 Spondylolisthesis, lumbosacral region; M46.1 Sacroiliitis, not elsewhere classified; M16.0 Bilateral primary osteoarthritis of hip; M85.89 Other specified disorders of bone density and structure, multiple sites; Z80.3 Family history of malignant neoplasm of breast
CPT/HCPCS: 72100; 72220; 77063; 77067; 77080